=== PATIENT | male | born 1990 | race Caucasian/White ===

== ENCOUNTER 2025-08-20 13:48 | Emergency (ER) | payer OTHER ==
[~2025-08-20] VITALS: Ht 175.3 cm; Wt 82.7 kg
[2025-08-20 13:55] VITALS: TEMP 97.6
--- NOTE | 2025-08-20 14:01 | ELECTROCARDIOGRAPH REPORT ---
[facility] Test Date: 2025-08-20 Test Time: 13:53:13 Pat Name: ARONLDO HOLBROOK Department: EMERGENCY ROOM Room: Gender: M Marketing And Outreach Coordinator: RITU : 1990 Requested By: ESTEFANY NICHOLAS Order Number: [id number] Reading MD: Dr. Ángel Bishop Measurements Intervals [place] Rate: 104 P: 64 ME: 122 QRS: 48 QRSD: 82 T: 55 QT: 331 QTc: 436 Interpretive Statements Sinus tachycardia ST elev, probable normal early repol pattern Electronically Signed On 08-20-2025 19:05:[address] Ángel Bishop Please click the below link to view image of tracing.
[2025-08-20 14:25] LABS: MEAN PLATELET VOLUME 7.2 FL (7.4-10.4); RED CELL DISTRIBUTION WIDTH 13.1 % (11.5-14.5)
--- NOTE | 2025-08-20 14:31 | RADIOLOGY REPORT ---
CHEST RADIOGRAPH Indication: CHEST PAIN Technique: Single frontal view of the chest was obtained Comparison: None FINDINGS: Lines and Tubes: None Lungs: No focal consolidation. Pleura: No effusion. No pneumothorax. Cardiomediastinal contours: Unremarkable Bones: No acute osseous abnormality. IMPRESSION: No acute cardiopulmonary disease.
[2025-08-20 14:36] LABS: CREATININE 0.94 MG/DL (0.60-1.10); TOTAL CARBON DIOXIDE 27.9 MMOL/L (24-32); eCRCL 109 ML/MIN; eGFR > 90 ML/MIN
[2025-08-20 14:47] LABS: PRO BRAIN NATRIURETIC PEPTIDE < 30 PG/ML (0-125)
--- NOTE | 2025-08-20 17:19 | Physician Documentation ---
History of Present Illness ~ Chief Complaint: Chest Pain Stated Complaint: CHEST PAIN Time Seen by MD: 14:27 OK to notify your PCP?: Yes Mode of Arrival: POV, Ambulatory HPI 35-year-old male patient who is not taking any medication came to the emergency room because he has been feeling anxious and also sharp pain in the left side of the chest pretty focused pain with nausea but no vomiting. That happened since 11:00 today. His blood pressure also went up. There is no difficulty breathing. According to the he has been having panic attack about 2 times per week. 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 He is supposed to take medications but he has not been taking any medication for the last three years. No other symptoms. Medication Reconciliation Allergies: Coded Allergies: No Known Allergies (Unverified , 08/20/25) Scheduled Metoprolol Tartrate (Metoprolol Tartrate), 1 TAB PO Q12H Review of Systems ROS As stated above in the HPI, otherwise all systems are reviewed and negative. Physical Exam Vital Signs: Temperature: 97.6, Heart Rate: 77, Respiratory Rate: 16, BP: 140/98, Pulse Oximetry: 98, Weight: 82.730 Oxygen Flow Rate: 0 Physical Exam Reviewed vital signs and they are well within normal range. Const: Not in a I trust you thank you not in acute cardiopulmonary distress but a little anxious. Head: Atraumatic Eyes: Normal Conjunctiva ENT: Normal External Ears, Nose and Mouth. Moist mucous membrane. Neck: Full range of motion. No meningismus Resp: Clear to auscultation bilaterally. Normal work of breathing Cardio: 90 per minute. Regular rate and rhythm, no murmurs. Skin well perfused Abd: Soft, non-tender, non-distended. Normal bowel sounds. No rebound or guarding Skin: No petechiae or rashes. Warm and dry Back: No midline or flank tenderness Ext: No cyanosis, or edema Neuro: Awake and alert Psych: Normal Mood and Affect Progress Results/Orders Results/Orders Orders - KALE GOMES MD Monitor (08/20/25 14:00) Saline Lock (08/20/25 14:00) Oxygen (08/20/25 14:00) Completed Orders - KALE GOMES MD PBNP (08/20/25 14:00) Hs Troponin I W Calculations (08/20/25 14:00) Hs Troponin I W Calculations (08/20/25 16:00) Hs Troponin I W Calculations (08/20/25 17:00) Lorazepam Tablet (Ativan Tablet) (08/20/25 14:35) Metoprolol Tartrate Tablet (Lopressor Ta (08/20/25 14:35) Vital Signs 08/20/25 08/20/25 08/20/25 08/20/25 13:55 14:31 14:38 15:15 Temp 97.6 Pulse 110 98 Resp 18 16 20 16 B/P (MAP) 170/123 164/113 (130) Pulse Ox 100 98 O2 Flow Rate 0 08/20/25 08/20/25 08/20/25 08/20/25 15:16 15:16 16:10 17:28 Pulse 92 92 77 85 Resp 16 16 16 B/P (MAP) 163/110 (127) 140/98 (112) 133/100 Pulse Ox 98 98 98 O2 Flow Rate 0 0 Laboratory Tests Test 08/20/25 14:12 08/20/25 16:06 08/20/25 16:58 White Blood Count 6.2 Red Blood Count 5.24 Hemoglobin 17.3 Hematocrit 49.4 Mean Corpuscular Volume 94.2 Mean Corpuscular Hemoglobin 33.1 H Mean Corpuscular Hemoglobin Concent 35.1 Red Cell Distribution Width 13.1 Platelet Count 303 Mean Platelet Volume 7.2 L Neutrophils (%) (Auto) 77.1 H Lymphocytes (%) (Auto) 16.6 L Monocytes (%) (Auto) 5.3 Eosinophils (%) (Auto) 0.7 Basophils (%) (Auto) 0.3 Neutrophils # (Auto) 4.8 Lymphocytes # (Auto) 1.0 L Monocytes # (Auto) 0.3 Eosinophils # (Auto) 0.0 Basophils # (Auto) 0.0 CBC Comment D-Dimer < 0.19 D-Dimer Comment Sodium Level 138 Potassium Level 4.3 Chloride Level 101 Carbon Dioxide Level 27.9 Anion Gap 9 Blood Urea Nitrogen 8 Creatinine 0.94 Estimated GFR/1.73 m2 > 90 BUN/Creatinine Ratio 8.5 L Glucose Level 139 H Calcium Level 9.2 Total Bilirubin 1.6 H Aspartate Amino Transf (AST/SGOT) 48 H Alanine Aminotransferase (ALT/SGPT) 71 Alkaline Phosphatase 102 Troponin I High Sensitivity 11 11 11 Pro-B-Type Natriuretic Peptide < 30 Total Protein 8.3 H Albumin 4.6 Globulin 3.7 Albumin/Globulin Ratio 1.2 Chemistry Comments Troponin I High Sens Percent Delta 0 0 Troponin I Hi Sens Absolute Change 0 0 Medical Decision Making Additional information obtaine: family Findings During the physical examination, the findings suggestive of acute life- threatening condition such as JVD, tracheal deviation, acidotic breathing, noisy stridorous breath sounds, pulses paradoxus, muffled heart sounds, unequal breath sounds, abdominal rigidity and rebound tenderness, focal neurological deficits, cool clammy skin, severe hypotension, severe tachycardia or bradycardia are absent. His cardiac score is two. Chest x-ray is unremarkable. CBC CMP is unremarkable and troponin is serially negative. D-dimer is essentially normal at 0.19. ED MD interpretation of EKG done at 13:53 hours shows sinus tachycardia at a rate of 104. Normal axis and normal intervals and no ischemic changes. I really think the chest pain is noncardiac and probably related to anxiety. He was given 1 mg of Ativan p.o. and metoprolol 50 mg p.o.. The patient will be discharged home with metoprolol prescriptions and aftercare instructions. Patient does not have identifiable emergent medical condition that warrants inpatient medical care at this time. The patient is deemed safe for discharge with outpatient follow up. DISCLAIMER Inadvertent spelling and grammatical errors,inadvertent wing commander errors,syntax errors, grammatical errors, and spelling errors are likely due to EMR/dictation software use and do not reflect on the overall quality of patient care. Note that the electronic time recorded on this note does not necessarily reflect the actual time of the patient encounter. Heart Score: 2 Differential Dx:Considerations: Include: angina, costochondritis, myocardial infarction, pericarditis, pneumonia, pneumothorax Departure Disposition: HOME / SELF CARE / HOMELESS Impression: Primary Impression: Non-cardiac chest pain Condition: Stable Discharge Instructions: Nonspecific Chest Pain, Adult Additional Instructions: Thank you for coming to our Emergency Department today. Do deep slow breathing exercise when you feel really anxious. Please ask your nurse or provider if you have questions about your care today and do not leave until all your questions have been answered. Please use any medications given as directed and follow-up with your doctor (or the doctor you were referred to) in the next 1-3 days. Your primary care doctor can help to coordinate outpatient specialty care and provide authorization for specialty referral as needed. If you do not have a primary care doctor you may follow up at a [facility]. You may also use motrin and tylenol as needed for fever and/or pain unless instructed otherwise by your provider or nurse. Indications for more urgent follow-up have been discussed, but you may return to the Emergency Department at ANY time for any worrisome or worsening symptoms. County Facilities: [facility] Facilities: [facility]: [facility] [place] Address:[address] [place] [address] [facility]: [place] Address:[address] [place] [id number] [facility]: [facility] Address:[address] [place] [address] [facility] Address:[address] [place] [address] Registration Billing Pharmacy Referrals [facility] Address:[address] [place] [address] Referrals: NO PRIMARY CARE PROVIDER (PCP) Prescriptions Metoprolol Tartrate (Metoprolol Tartrate) 25 Mg Tablet 1 TAB PO Q12H for 30 Days, #60 TAB 0 Refills Prov: KALE GOMES MD 08/20/25 Signature Scribe Signature: x Attestation: KALE Santamaria MD Aug 20, 2025 17:18
[2025-08-20] MEDS ORDERED: METO25TA6 PO (17:22)
[2025-08-20 17:28] VITALS: BP 133/100; PULSE 85; RESP 16; O2SAT 98
== END 2025-08-20 17:46 | disposition home or self-care (01) ==
LOC: ER 13:49
DX: R07.89 Other chest pain (principal); R06.02 Shortness of breath
CPT/HCPCS: 36415; 71045; 80053; 83880; 84484; 85025; 85379; 93005; 99285